=== PATIENT | male | born 1975 | race Caucasian/White ===

== ENCOUNTER 2017-10-27 02:39 | Emergency (ER) | payer BC ==
[~2017-10-27] VITALS: Ht 182.9 cm; Wt 126.1 kg
--- NOTE | 2017-10-27 03:43 | PHYS DOC ---
Past History Past Medical History: Other Past Surgical History: Other Alcohol Use: None Drug Use: Marijuana Adult General Chief Complaint Chief Complaint: LOWER EXT PAIN HPI HPI Patient is a 42 year old male who presents with complaint of neuropathic pain. The patient states that his symptoms started earlier this evening. Patient states that he has had long-standing history of neuropathy and follows with a pain management doctor [facility]. Patient states that he gets exacerbations when there are weather changes. The patient took his home medications but states that this did not help. The patient states that when he has had to have previous treatment, he has received IV Ketamine and Dilaudid which has helped to control his symptoms and allow his home medications to work better. Patient denies any fever or other unusual symptoms. Patient states that he takes Lyrica and Cymbalta at home for daily treatment. Patient states the pain is primarily in his lower extremities and describes the pain as sharp and burning. Review of Systems Review of Systems Constitutional: Denies fever or chills [] Eyes: Denies change in visual acuity, redness, or eye pain [] HENT: Denies nasal congestion or sore throat [] Respiratory: Denies cough or shortness of breath [] Cardiovascular: Denies chest pain or edema[] GI: Denies abdominal pain, nausea, vomiting, bloody stools or diarrhea [] : Denies dysuria or hematuria [] Musculoskeletal: Denies back pain or joint pain [] Integument: Denies rash or skin lesions [] Neurologic: Neuropathy, denies focal weakness or sensory changes [] Endocrine: Denies polyuria or polydipsia [] All other systems were reviewed and found to be within normal limits, except as documented in this note. Allergies Allergies Allergies Coded Allergies Type Severity Reaction Last Updated Verified morphine Allergy Intermediate 10/27/17 Yes tramadol Allergy Intermediate 10/27/17 Yes Physical Exam Physical Exam Constitutional: Alert, afebrile, appears in [id number] discomfort. [] HENT: Normocephalic, atraumatic, bilateral external ears normal, oropharynx moist, no oral exudates, nose normal. [] Eyes: PERRLA, EOMI, conjunctiva normal, no discharge. [] Neck: Normal range of motion, no tenderness, supple, no stridor. [] Cardiovascular:Heart rate regular rhythm, no murmur [] Lungs & Thorax: Bilateral breath sounds clear to auscultation [] Abdomen: Bowel sounds normal, soft, no tenderness, no masses, no pulsatile masses. [] Skin: Warm, dry, no erythema, no rash. [] Back: No tenderness, no CVA tenderness. [] Extremities: No tenderness, no cyanosis, no clubbing, ROM intact, no edema. [] Neurologic: Alert and oriented X 3, normal motor function, decreased sensation to light touch in the bilateral lower extremities in a stocking pattern. [] Current Patient Data Vital Signs Vital Signs Date Time Temp Pulse Resp B/P (MAP) Pulse Ox O2 Delivery O2 Flow Rate FiO2 10/27/17 02:43 98.7 109 20 96 Room Air Lab Results Not performed EKG EKG Not performed[] Radiology/Procedures Radiology/Procedures Not performed[] Course & Med Decision Making Course & Med Decision Making Pertinent Labs and Imaging studies reviewed. (See chart for details) The patient was given any analgesic dose of 60 mg of IV ketamine and 0.5 mg of IV Dilaudid in the emergency department. The patient states that this greatly helped his pain and he feels at his baseline currently. The patient states that he would like to go home at this time and he states that he will continue on his home medications for treatment of his chronic neuropathy. Advised patient to follow up with primary doctor in the next week as needed and return to emergency department for any worsening symptoms. Patient was understanding and agreement with treatment plan.[] Dragon Disclaimer Dragon Disclaimer This electronic medical record was generated, in whole or in part, using a voice recognition dictation system. Departure Departure: Impression: Primary Impression: Neuropathic pain of both legs Disposition: 01 HOME, SELF-CARE Condition: IMPROVED Referrals: NON,STAFF (PCP) Patient Instructions: Pain, Neuropathic Additional Instructions: Return to the emergency department for any worsening symptoms. BENNIE ELISE MD Oct 27, 2017 03:43
[2017-10-27] MEDS ORDERED: HYDROmorphone PF 1 MG/ML DISP.SYRIN IM ONE (03:45)
[2017-10-27] MEDS ORDERED: KETAMINE HCL 500 MG/10 ML VIAL. IV ONE (03:45)
[2017-10-27] MEDS ORDERED: HYDROmorphone PF 1 MG/ML DISP.SYRIN IV ONE (04:00)
[2017-10-27 04:20] VITALS: BP 149/90
== END 2017-10-27 04:29 | disposition home or self-care (01) ==
LOC: ER 02:39
DX: G57.93 Unspecified mononeuropathy of bilateral lower limbs (principal); Z88.5 Allergy status to narcotic agent; Z88.6 Allergy status to analgesic agent
CPT/HCPCS: 96374; 96375; 99284; J1170; J3490

== ENCOUNTER 2017-10-30 23:59 | Emergency (ER) | payer BC ==
[2017-10-31] MEDS ORDERED: ONDANSETRON PF 4 MG/2 ML VIAL. IV ONE (01:00)
[2017-10-31] MEDS ORDERED: KETAMINE HCL 500 MG/10 ML VIAL. IV ONE ×2 (01:00→02:00)
[2017-10-31] MEDS ORDERED: HYDROmorphone PF 1 MG/ML DISP.SYRIN IV ONE ×3 (01:00→02:00)
[2017-10-31 01:01] LABS: BASO # 0.1 x10^3/uL (0.0-0.2); BASO % 1 % (0-3); EOS % 14 % (0-3); HEMATOCRIT 36.8 % (39.0-53.0); HEMOGLOBIN 12.7 g/dL (13.0-17.5); LYMPH # 1.9 x10^3/uL (1.0-4.8); LYMPH % 25 % (24-48); MEAN CORPUSCULAR HEMOGLOBIN 31 pg (25-35); MEAN CORPUSCULAR HGB CONC 35 g/dL (31-37); MEAN CORPUSCULAR VOLUME 90 fL (79-100); MONO # 0.4 x10^3/uL (0.0-1.1); MONO % 6 % (0-9); NEUT % 54 % (31-73); PLATELET COUNT 162 x10^3/uL (140-400); RED BLOOD COUNT 4.08 x10^6/uL (4.30-5.70); RED CELL DISTRIBUTION WIDTH 13.7 % (11.5-14.5); WHITE BLOOD COUNT 7.4 x10^3/uL (4.0-11.0)
[2017-10-31 01:12] LABS: ALBUMIN/GLOBULIN RATIO 0.9 (1.0-1.7); CALCIUM 8.1 mg/dL (8.5-10.1); CREATININE 1.1 mg/dL (0.7-1.3); GFR 73.1; POTASSIUM 3.7 mmol/L (3.5-5.1); TOTAL BILIRUBIN 0.3 mg/dL (0.2-1.0); TOTAL PROTEIN 6.4 g/dL (6.4-8.2)
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
[2017-10-31 02:14] VITALS: BP 140/74
[2017-10-31] MEDS ORDERED: LORazepam 2 MG/ML VIAL IV ONE (02:30)
[2017-10-31] MEDS ORDERED: IV NORMAL SALINE 1,000ML 1,000 ML IV ONE (02:30)
[2017-10-31] MEDS ORDERED: FENT1PAT15 TD (02:39)
[2017-10-31] MEDS ORDERED: METF10003 PO (02:39)
[2017-10-31] MEDS ORDERED: OXYC5CAP PO (02:39)
[2017-10-31] MEDS ORDERED: ACET500T68 PO (02:39)
[2017-10-31] MEDS ORDERED: HYDR4TAB45 PO (02:39)
[2017-10-31] MEDS ORDERED: CYCL-331 PO (02:39)
[2017-10-31] MEDS ORDERED: MULT-697 PO (02:39)
[2017-10-31] MEDS ORDERED: VARE1TAB21 PO (02:39)
[2017-10-31] MEDS ORDERED: PREG200C PO (02:39)
[2017-10-31] MEDS ORDERED: ROPI0.5T PO (02:39)
[2017-10-31] MEDS ORDERED: GABA600T2 PO (02:39)
[2017-10-31] MEDS ORDERED: LIDO30CR TP (02:39)
[2017-10-31] MEDS ORDERED: SENN-79 PO (02:39)
[2017-10-31] MEDS ORDERED: ALPR0.5T6 PO (02:39)
[2017-10-31] MEDS ORDERED: DULO60CA6 PO (02:39)
== END 2017-10-31 03:43 | disposition home or self-care (01) ==
LOC: ER 23:59
DX: G57.93 Unspecified mononeuropathy of bilateral lower limbs (principal); Z88.5 Allergy status to narcotic agent; Z88.6 Allergy status to analgesic agent
CPT/HCPCS: 36415; 80053; 85025; 96374; 96375; 96376; 99284; J1170; J2060; J2405; J3490; J7030

== ENCOUNTER 2018-02-08 03:45 | Observation (INO) | payer BC, OTHER ==
[~2018-02-08] VITALS: Ht 182.9 cm; Wt 136.2 kg
[~2018-02-08 03:45] MED LIST: ACET500T68 PO; ALPR0.5T6 PO; CYCL-331 PO; DULO60CA6 PO; FENT1PAT15 TD; GABA600T2 PO; HYDR4TAB45 PO; LIDO30CR TP; METF10007 PO; MULT-697 PO; OXYC5CAP PO; PREG200C PO; ROPI0.5T PO; SENN-80 PO; VARE1TAB21 PO
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
[2018-02-08] MEDS: IV RINGERS SOLUTION,LACTATED 1,000 ML IV SCH ×6 (04:12→22:45)
[2018-02-08] MEDS ORDERED: KETOROLAC 30 MG/ML VIAL. IV ONE (04:30)
[2018-02-08] MEDS ORDERED: ORPHENADRINE CITRATE 60 MG/2 ML VIAL. IV ONE (04:30)
[2018-02-08 04:35] LABS: BASO # 0.1 x10^3/uL (0.0-0.2); BASO % 1 % (0-3); EOS # 0.2 x10^3/uL (0.0-0.7); EOS % 2 % (0-3); HEMATOCRIT 45.9 % (39.0-53.0); HEMOGLOBIN 15.6 g/dL (13.0-17.5); LYMPH # 3.3 x10^3/uL (1.0-4.8); LYMPH % 37 % (24-48); MEAN CORPUSCULAR HEMOGLOBIN 31 pg (25-35); MEAN CORPUSCULAR HGB CONC 34 g/dL (31-37); MEAN CORPUSCULAR VOLUME 90 fL (79-100); MONO # 0.7 x10^3/uL (0.0-1.1); MONO % 8 % (0-9); NEUT # 4.6 x10^3uL (1.8-7.7); NEUT % 53 % (31-73); PLATELET COUNT 259 x10^3/uL (140-400); RED BLOOD COUNT 5.08 x10^6/uL (4.30-5.70); RED CELL DISTRIBUTION WIDTH 15.5 % (11.5-14.5); WHITE BLOOD COUNT 8.8 x10^3/uL (4.0-11.0)
[2018-02-08 04:50] LABS: ALBUMIN 3.9 g/dL (3.4-5.0); CALCIUM 8.2 mg/dL (8.5-10.1); CREATININE 1.7 mg/dL (0.7-1.3); DIRECT BILIRUBIN 0.1 mg/dL (0.0-0.2); GFR 44.2; MAGNESIUM 1.6 mg/dL (1.8-2.4); POTASSIUM 4.1 mmol/L (3.5-5.1); TOTAL BILIRUBIN 0.4 mg/dL (0.2-1.0); TOTAL PROTEIN 7.5 g/dL (6.4-8.2)
[2018-02-08 05:03] LABS: BILIRUBIN,URINE NEG (NEG); CLARITY,URINE CLEAR; COLOR,URINE YELLOW; GLUCOSE,URINE NEG (NEG)
[2018-02-08 05:04] LABS: BACTERIA,URINE 0 /HPF (0-FEW); NITRITE,URINE NEG (NEG); RBC,URINE RARE /HPF (0-2); SQUAMOUS EPITHELIAL CELL,UR OCC /LPF; UROBILINOGEN,URINE 0.2 mg/dL (0.2 mg/dL); WBC,URINE RARE /HPF (0-4)
[2018-02-08 05:05] LABS: AMPHETAMINE/METHAMPHETAMINE NEG (NEG); BARBITURATES NEG (NEG); BENZODIAZEPINES NEG (NEG); CANNABINOIDS POS (NEG); COCAINE NEG (NEG); METHADONE NEG (NEG); OPIATES NEG (NEG); PHENCYCLIDINE NEG (NEG)
[2018-02-08] MEDS ORDERED: KETAMINE HCL 500 MG/10 ML VIAL. IV ONE (05:30)
[2018-02-08] MEDS ORDERED: VALPROATE SODIUM 500 MG in IV NORMAL SALINE 50ML 50 ML IV ONE (05:30)
[2018-02-08] MEDS ORDERED: methylPREDNISolone SOD SUCC PF 125 MG/2 ML VIAL. IV ONE (05:30)
[2018-02-08] MEDS ORDERED: VALPROATE SODIUM 500 MG/5 ML VIAL IV ONE (05:36)
[2018-02-08] MEDS ORDERED: IV NORMAL SALINE 50ML 50 ML ONE (05:36)
[2018-02-08] MEDS ORDERED: MAGNESIUM SULFATE 2GM 50 ML IV ONE (06:00)
--- NOTE | 2018-02-08 06:03 | EKG ---
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
[2018-02-08] MEDS ORDERED: ONDANSETRON PF 4 MG/2 ML VIAL. IV PRN (06:30)
[2018-02-08 07:08] LABS: BGAS PH 7.39 (7.35-7.46)
[2018-02-08] MEDS ORDERED: LORazepam 2 MG/ML VIAL IV ONE (07:30)
[2018-02-08 08:42] VITALS: BP 154/90
[2018-02-08] MEDS: HYDROmorphone PF 1 MG/ML DISP.SYRIN IV PRN ×7 (08:42→22:45)
[2018-02-08 10:48] VITALS: BP 155/98
[2018-02-08] MEDS ORDERED: IBUPROFEN 600 MG TABLET. PO ONE (13:30)
[2018-02-08 14:49] VITALS: BP 156/90
[2018-02-08] MEDS ORDERED: SENNOSIDES 8.6 MG TABLET PO PRN (15:15)
[2018-02-08] MEDS ORDERED: IBUPROFEN 600 MG TABLET. PO PRN (15:45)
--- NOTE | 2018-02-08 16:34 | HP ---
ADMIT DATE: 02/08/2018 HISTORY OF PRESENT ILLNESS: The patient is a 42-year-old male patient, who came to the Emergency Room, complaining of severe pain. He apparently has a history of chronic painful peripheral neuropathy. He claimed that he has severe pain in a stocking distribution in both lower extremities, more so on the left than right. He claims that he was investigated in multiple places including at where he was fitted also with a nerve stimulator that did not work. Reportedly, he has been an extensively investigated. No cause was found for his painful peripheral neuropathy. He did have a left patellar fracture that was treated with open reduction and internal fixation. When he was young, he has also a fall and back injury, although there is no evidence of any radiculopathy or compression fracture or trauma to his lower lumbar spine. He denied any problem with his bowel or bladder. He was extensively investigated in the Emergency Room. His lab work was mostly unremarkable. His chemistry was normal except for slightly elevated creatinine. His inflammatory markers were normal. His C-reactive protein was 3 and sedimentation rate was 14 mm per hour. He was admitted and was started on hydromorphone 0.5 mg every 2 hours and together with multivitamin and gabapentin as well as senna together with Tylenol and ibuprofen. PAST MEDICAL HISTORY: Significant for painful peripheral neuropathy of 6 years' duration. He has also gastroesophageal reflux disease. PAST SURGICAL HISTORY: Significant for tonsillectomy, left patellar fracture, nerve stimulator placement and removal, history of esophagogastroduodenoscopy and colonoscopy. ALLERGIES: HE IS ALLERGIC TO MORPHINE AND TRAMADOL. MEDICATIONS: He is currently on gabapentin 600 mg 4 times a day. Use Tylenol 650 mg every 4 hours, ibuprofen 600 mg 3 times a day and he is also on sertraline 100 mg once a day. FAMILY HISTORY: He has one sister older at age of 45 and healthy. His father is alive at the age of 72, who has coronary artery disease, status post PCI and stent deployment. His mother is alive at age of 71. She is a breast cancer survivor and had a CVA. SOCIAL HISTORY: He is to his current , but they do not have children and common, but he has children from previous marriage. He smokes less than a pack a day, does not drink alcohol, smokes marijuana. He apparently worked for [employer] for [employer] for past 20 years and recently was laid off. REVIEW OF SYSTEMS: The patient denied any blurring of vision, cataract, glaucoma or macular degeneration. Denied any earache, tinnitus or sensorineural deafness. Denied any nosebleeds, stuffy nose or postnasal drip. Denied any sore throat, sore tongue, toothache, hoarseness of voice or difficulty swallowing. Denied any nausea, vomiting, diarrhea or constipation. Denied any hematemesis, melena or hematochezia. Denied any dysuria, frequency or hematuria. Denied any chest pain, shortness of breath, orthopnea, paroxysmal nocturnal dyspnea. Denied any cough, phlegm or hemoptysis. Denied any chills, rigors, or fever. Denied any dizziness, lightheadedness, or vertigo. PHYSICAL EXAMINATION: GENERAL: On examining him today, he looked well and was clearly in no apparent respiratory distress. VITAL SIGNS: His heart rate was 137, blood pressure was 131/107, temperature was 98.2, respiratory rate was 24, and oxygen saturation was 95% on room air. HEENT: Examination of the head, eyes, ears, nose and throat showed normocephalic, atraumatic. NECK: Supple. HEART: Showed normal first and second heart sounds with no gallop, rub or murmur. CHEST: Clear to auscultation. No crepitation or rhonchi. ABDOMEN: Distended, soft, nontender. No guarding or rigidity. No organomegaly. Hernial orifice intact. Bowel sounds normal. NEUROLOGIC: He was awake, alert, and responding. All cranial nerves intact. He moves extremities without difficulty. LABORATORY DATA: On arrival showed a white cell count of 8800, hemoglobin 15.6, hematocrit 45, MCV 90 and platelet count of 259,000 with normal manual differential. His sedimentation rate was 40 mm per hour. Serum sodium was 137, potassium 4.1, chloride 98, bicarbonate 23, anion gap of 16, BUN 28, creatinine 1.7, estimated GFR was 44 mL per minute, his glucose 148, calcium was 8.2, magnesium was 1.6. Total bilirubin, AST, ALT, alkaline phosphatase were normal. His CK was 231. His C-reactive protein was only 3 mg/dL. Total protein was 7.5, albumin 3. His arterial blood gases showed a pH of 7.39, pCO2 of 37, pO2 of 91, bicarbonate 23, and oxygen saturation was 97% on FiO2 of 32%. His urinalysis showed the urine was yellow, clear with a pH of 5.5 and specific gravity of 1.030. There is small amount of protein. The urine was negative for glucose, trace of ketones, small amount of blood, negative for nitrite and leukocyte esterase. There are no rbc's, no wbc's, and no bacteria. His toxic screen was positive for cannabinoids and alcohol. IMPRESSION: In summary, this is a 42-year-old male patient, who claims that he is having idiopathic painful peripheral neuropathy, apparently has been extensively investigated including at and he was offered the nerve stimulator that succeeded on trial time, but when it was actually in, he did not benefit from it and had to be taken out. PLAN: My plan is to put him back on all his medication and we will ask for the record from , so that we do not reduplicate all the and decide on further management accordingly. SARAH HAMILTON MD DR: KAYLAN/davie JOB#: [id number] / [id number]
[2018-02-08] MEDS ORDERED: GABAPENTIN 400 MG CAPSULE. PO SCH (17:45)
[2018-02-08] MEDS: GABAPENTIN 300 MG CAPSULE. PO SCH (17:53)
[2018-02-08] MEDS: ACETAMINOPHEN 325 MG TABLET PO PRN (17:53)
[2018-02-08 20:42] VITALS: BP 164/108
[2018-02-08 21:00] VITALS: BP 152/92
[2018-02-08] MEDS ORDERED: GABAPENTIN 300 MG CAPSULE. PO SCH (21:00)
[2018-02-08 22:51] VITALS: BP 160/105
[2018-02-09] MEDS: HYDROmorphone PF 1 MG/ML DISP.SYRIN IV PRN ×6 (01:31→12:58)
[2018-02-09] MEDS: ACETAMINOPHEN 325 MG TABLET PO PRN ×2 (05:48→08:33)
[2018-02-09 06:08] VITALS: BP 161/99
[2018-02-09 07:28] LABS: BASO % 0 % (0-3); EOS % 0 % (0-3); HEMATOCRIT 39.6 % (39.0-53.0); HEMOGLOBIN 13.5 g/dL (13.0-17.5); LYMPH # 1.3 x10^3/uL (1.0-4.8); LYMPH % 19 % (24-48); MEAN CORPUSCULAR HEMOGLOBIN 31 pg (25-35); MEAN CORPUSCULAR HGB CONC 34 g/dL (31-37); MEAN CORPUSCULAR VOLUME 90 fL (79-100); MONO # 0.7 x10^3/uL (0.0-1.1); MONO % 10 % (0-9); NEUT % 71 % (31-73); PLATELET COUNT 203 x10^3/uL (140-400); RED CELL DISTRIBUTION WIDTH 15.3 % (11.5-14.5); WHITE BLOOD COUNT 7.1 x10^3/uL (4.0-11.0)
[2018-02-09 07:30] LABS: CREATININE 0.9 mg/dL (0.7-1.3); GFR 92.1; POTASSIUM 3.9 mmol/L (3.5-5.1)
[2018-02-09] MEDS: IV RINGERS SOLUTION,LACTATED 1,000 ML IV SCH (07:30)
[2018-02-09] MEDS: GABAPENTIN 300 MG CAPSULE. PO SCH ×2 (08:30→12:51)
[2018-02-09] MEDS ORDERED: MULTIVITAMIN with MINERAL TABLET. PO SCH (09:00)
[2018-02-09 10:47] VITALS: BP 160/90
--- NOTE | 2018-02-09 17:57 | DS ---
DATE OF DISCHARGE: 02/09/2018 HOSPITAL COURSE: The patient is a 42-year-old male patient who came with complaining of severe pain exacerbation of his painful peripheral neuropathy in stocking distribution of both lower extremities, this started about 6 years ago. He apparently has been seen in multiple centers and, in fact a nerve stimulator at [facility] has tried. He was seen at pain management clinic and tried multiple narcotics and apparently he was on duloxetine, unfortunately on Lyrica, but the insurance stopped paying for it and he tried gabapentin and apparently doing well with that. When he came to our facility, he also was extremely dehydrated. His BUN and creatinine was high at 28 and 1.7 and he was rehydrated. We started him on gabapentin and ibuprofen together with hydromorphone and antiemetic and he did very well. He has had no further episodes of nausea and vomiting. His pain is much better controlled. When I saw him today, he was resting slightly propped up in bed, in no apparent respiratory distress, awake, alert, responding appropriately. Cranial nerves are intact. He moves extremities without difficulty. His pain is much better controlled. His lab work has improved. His BUN and creatinine are down to 25 and 0.9. A decision was made to discharge him home to follow with his primary care physician. PHYSICAL EXAMINATION: GENERAL: When I saw him this afternoon, he looked well and was clearly in no apparent respiratory distress. No pallor, jaundice, cyanosis, or thyromegaly. No jugular venous distension. No limb edema. VITAL SIGNS: His heart rate was 85, blood pressure was 161/99, temperature was 97.7, respiratory rate was 18, and oxygen saturation was 96%. HEENT: Examination of the head, eyes, ears, nose and throat showed normocephalic, atraumatic. NECK: Supple. HEART: Showed normal first and second heart sounds. No gallop, rub or murmur. CHEST: Clear to auscultation. No crepitation or rhonchi. ABDOMEN: Distended, soft, nontender. No guarding or rigidity. No organomegaly. Hernial orifices are intact and bowel sounds normal. NEUROLOGICAL: He was awake, alert, responding appropriately. All his cranial nerves are intact. EXTREMITIES: He moves extremities without difficulty. He ambulates without assistance or assistive devices. His intake was 4477. No record of any output. LABORATORY DATA: His lab work this morning showed serum sodium was 135, potassium 3.9, chloride 98, bicarbonate 25, anion gap of 12, BUN 25, creatinine 0.9, estimated GFR was 92 mL per minute. His glucose 131, calcium was 8. His white cell count was 7100, hemoglobin 13.5, hematocrit 39, MCV 90, and platelet count of 103,000. His sed rate was 14 mmHg. C-reactive protein was only 3 mg/dL. ASSESSMENT: 1. Painful [id number] peripheral neuropathy, responding well to treatment. 2. Gastroesophageal reflux disease. 3. Morbid obesity. 4. Restless leg syndrome. 5. Hypertension. 6. I will discuss the finding of high blood pressure, although he was in pain and that he might consider talking to his primary care physician for antihypertensive medication. SARAH HAMILTON MD DR: KAYLAN/davie JOB#: [id number] / [id number]
== END 2018-02-09 15:15 | disposition home or self-care (01) ==
LOC: ER 03:45 → INTOOBSV 06:00 → 1 SOUTH 06:00
PROVIDERS: ADMIT Internal Medicine; ATTEND Internal Medicine
DX: G62.9 Polyneuropathy, unspecified (principal); K21.9 Gastro-esophageal reflux disease without esophagitis; I10 Essential (primary) hypertension; E66.01 Morbid (severe) obesity due to excess calories; G25.81 Restless legs syndrome; F17.210 Nicotine dependence, cigarettes, uncomplicated; E86.0 Dehydration; Z79.899 Other long term (current) drug therapy; Z82.49 Family history of ischemic heart disease and other diseases of the circulatory system; Z82.3 Family history of stroke; Z88.8 Allergy status to other drugs, medicaments and biological substances
CPT/HCPCS: 36415; 36600; 80048; 80076; 80307; 81001; 82550; 82607; 82803; 83036; 83735; 84443; 84484; 85025; 85651; 86140; 93005; 96361; 96365; 96366; 96375; 96376; 97161; 97166; 99284; G0378; G0480; J1170; J1885; J2060; J2360; J2930; J3475; J3490; J7120; G0379

== ENCOUNTER 2018-04-06 10:41 | Emergency (ER) | payer OTHER ==
[~2018-04-06] VITALS: Ht 185.4 cm; Wt 144.2 kg
[2018-04-06 11:20] VITALS: BP 157/100
--- NOTE | 2018-04-06 11:43 | RAD ---
Right ankle, 3 views, 04/06/2018: HISTORY: Fall, pain There is an oblique fracture of the distal fibula along the superior margin of the lateral malleolus. There is slight posterior and lateral displacement of the distal fracture fragment. There is widening of distance between the talus and medial malleolus compatible with medial ligamentous injury. No additional fracture is evident. Moderate diffuse soft tissue swelling is present. Right foot, 3 views, 04/06/2018: There are mild scattered degenerative changes. No additional fracture is identified. IMPRESSION: 1. Acute distal fibular fracture. 2. Widening of the ankle mortise medially compatible with ligamentous injury. Electronically signed by: Dwayne Hannah MD (04/06/2018 11:38 AM) [facility]
[2018-04-06] MEDS ORDERED: HYDR-3165 PO (12:00)
--- NOTE | 2018-04-06 12:00 | PHYS DOC ---
Past History Past Medical History: Other Past Surgical History: Tonsillectomy, Other Smoking: Non-smoker Additional Smoking Information: 1 PPD Alcohol Use: None Drug Use: Marijuana Adult General Chief Complaint Chief Complaint: ANKLE PROBLEM HPI HPI Patient is a 42 year old male who presents with complaining of left ankle injury. Patient states he had an accidental fall from a standing position inside of his home at 6 AM today after his foot giving up on him because of chronic neuropathy and landed on his left ankle with twisting and injury of ankle. Patient denies other injuries and loss of consciousness. Patient complaining of severe pain in ankle and unable to bearing weight. Patient rated his pain 10 over 10. Patient denies new focal neuro deficit, fever and chills, nausea and vomiting, headache. Review of Systems Review of Systems Constitutional: Denies fever or chills [] Eyes: Denies change in visual acuity, redness, or eye pain [] HENT: Denies nasal congestion or sore throat [] Respiratory: Denies cough or shortness of breath [] Cardiovascular: No additional information not addressed in HPI [] GI: Denies abdominal pain, nausea, vomiting, bloody stools or diarrhea [] : Denies dysuria or hematuria [] Musculoskeletal: Denies back pain, reports joint pain [] Integument: Denies rash or skin lesions [] Neurologic: Denies headache, focal weakness or sensory changes [] Endocrine: Denies polyuria or polydipsia [] All other systems were reviewed and found to be within normal limits, except as documented in this note. Current Medications Current Medications Current Medications Medications (Trade) Dose Ordered Sig/Trice Start Time Stop Time Status Last Admin Dose Admin Acetaminophen/ Hydrocodone Bitart (Lortab 5/325) 2 tab 1X ONCE 04/06/18 11:45 04/06/18 11:46 DC Fentanyl Citrate (Fentanyl 2ml Vial) 100 mcg STK-MED ONCE 04/06/18 11:00 04/06/18 11:02 DC Allergies Allergies Allergies Coded Allergies Type Severity Reaction Last Updated Verified morphine Allergy Intermediate 10/27/17 Yes tramadol Allergy Intermediate 10/27/17 Yes Physical Exam Physical Exam Constitutional: Well developed, well nourished, moderate distress, non-toxic appearance, morbidly obese. [] HENT: Normocephalic, atraumatic. Neck: Normal range of motion, no tenderness, supple, no stridor. [] Cardiovascular: Tachycardia, no murmur [] Lungs & Thorax: Bilateral breath sounds clear to auscultation [] Skin: Diaphoretic Back: No tenderness, no CVA tenderness. [] Extremities: Left ankle with moderate edema and erythema in lateral malleolus with ecchymoses and tenderness and limited range of motion, chronic paresthesia , good cap refill Neurologic: Alert and oriented X 3, normal motor function, normal sensory function, no focal deficits noted. [] Psychologic: Affect anxious, judgement normal, mood normal. [] Current Patient Data Vital Signs Vital Signs Date Time Temp Pulse Resp B/P (MAP) Pulse Ox O2 Delivery O2 Flow Rate FiO2 04/06/18 11:20 98.1 118 20 97 Room Air EKG EKG [] Radiology/Procedures Radiology/[place] [address] IMAGING REPORT Signed PATIENT: SHEEBA MARCUS ACCOUNT: [id number] : 1975 LOCATION: ER AGE: 42 SEX: M EXAM STATUS: REG ER ORD. PHYSICIAN: JENNIFER RUSSO MD REASON: fall PROCEDURE: ANKLE LEFT 3V Right ankle, 3 views, 04/06/2018: HISTORY: Fall, pain There is an oblique fracture of the distal fibula along the superior margin of the lateral malleolus. There is slight posterior and lateral displacement of the distal fracture fragment. There is widening of distance between the talus and medial malleolus compatible with medial ligamentous injury. No additional fracture is evident. Moderate diffuse soft tissue swelling is present. Right foot, 3 views, 04/06/2018: There are mild scattered degenerative changes. No additional fracture is identified. IMPRESSION: 1. Acute distal fibular fracture. 2. Widening of the ankle mortise medially compatible with ligamentous injury. Electronically signed by: Dwayne Hannah MD (04/06/2018 11:38 AM) [facility] DICTATED AND SIGNED BY: DWAYNE HANNAH MD DATE: 04/06/18 2481 CC: JENNIFER RUSSO MD; INGRID MENA ~ Course & Med Decision Making Course & Med Decision Making Pertinent Imaging studies reviewed. (See chart for details) Evaluation of patient in ER showed 42-year-old male patient with a fall and injury to left ankle and fracture of distal fibula. With 100 g of fentanyl IM and 10 mg of Kincaid. Posterior leg splint was placed by REGIONAL SERVICE MANAGER with good cap refill. Crutches pulses provided and patient instructed to follow-up with on- call orthopedic physician. Ellie Disclaimer Dragon Disclaimer This electronic medical record was generated, in whole or in part, using a voice recognition dictation system. Departure Departure: Impression: Primary Impression: Fracture of distal end of left fibula Additional Impressions: Fall at home Morbid obesity with BMI of 40.0-44.9, adult Injury of ligament Neuropathy Disposition: HOME, SELF-CARE (at 1156) Condition: IMPROVED Referrals: INGRID MENA (PCP) Patient Instructions: Fibular Fracture, Ankle, Adult, Treated with or without Immobilization Additional Instructions: Follow-up with applications systems engineer orthopedic physician, call [phone] to make an appointment Use provided crutches Follow-up with your primary care physician in 3-5 days Return to ER if not getting better Scripts Hydrocodone Bit/Acetaminophen (NORCO 5-325 TABLET) 1 Each Tablet 1 TAB PO PRN Q6HRS PRN for PAIN, #14 TAB 0 Refills Prov: JENNIFER RUSSO MD 04/06/18 Problem Qualifiers JENNIFER RUSSO MD Apr 06, 2018 12:00
[2018-04-06] MEDS: HYDROcodone/APAP 5/325MG 1 TAB TABLET PO ONE (12:24)
== END 2018-04-06 12:26 | disposition home or self-care (01) ==
LOC: ER 10:41
DX: S82.832A Other fracture of upper and lower end of left fibula, initial encounter for closed fracture (principal); E66.01 Morbid (severe) obesity due to excess calories; G62.9 Polyneuropathy, unspecified; F17.200 Nicotine dependence, unspecified, uncomplicated; Z68.41 Body mass index [BMI] 40.0-44.9, adult; Z88.5 Allergy status to narcotic agent; Z88.6 Allergy status to analgesic agent; W18.30XA Fall on same level, unspecified, initial encounter; Y93.89 Activity, other specified; Y92.098 Other place in other non-institutional residence as the place of occurrence of the external cause; Y99.8 Other external cause status
CPT/HCPCS: 29515; 73610; 73630; 96372; 99283; J3010

== ENCOUNTER 2018-09-05 20:23 | Emergency (ER) | payer OTHER ==
[~2018-09-05] VITALS: Ht 185.4 cm; Wt 140.6 kg
[~2018-09-05 20:23] MED LIST changes: -GABA600T2 PO; +GABA600T7 PO; +HYDR-3165 PO
[2018-09-05] MEDS ORDERED: HALOPERIDOL LACT 5 MG/ML VIAL. IM ONE (20:45)
[2018-09-05] MEDS ORDERED: IV NORMAL SALINE 1,000ML 1,000 ML IV ONE ×2 (20:45→21:30)
[2018-09-05 20:56] LABS: BASO # 0.1 x10^3/uL (0.0-0.2); BASO % 1 % (0-3); EOS # 0.2 x10^3/uL (0.0-0.7); EOS % 2 % (0-3); HEMATOCRIT 47.4 % (39.0-53.0); HEMOGLOBIN 16.4 g/dL (13.0-17.5); LYMPH # 3.3 x10^3/uL (1.0-4.8); LYMPH % 38 % (24-48); MEAN CORPUSCULAR HEMOGLOBIN 35 pg (25-35); MEAN CORPUSCULAR HGB CONC 35 g/dL (31-37); MEAN CORPUSCULAR VOLUME 102 fL (79-100); MONO # 1.5 x10^3/uL (0.0-1.1); MONO % 17 % (0-9); NEUT # 3.6 x10^3uL (1.8-7.7); NEUT % 41 % (31-73); PLATELET COUNT 286 x10^3/uL (140-400); RED BLOOD COUNT 4.65 x10^6/uL (4.30-5.70); RED CELL DISTRIBUTION WIDTH 13.9 % (11.5-14.5); WHITE BLOOD COUNT 8.7 x10^3/uL (4.0-11.0)
[2018-09-05 21:14] LABS: ALBUMIN 3.9 g/dL (3.4-5.0); ALBUMIN/GLOBULIN RATIO 0.8 (1.0-1.7); CALCIUM 8.8 mg/dL (8.5-10.1); CREATININE 1.5 mg/dL (0.7-1.3); GFR 50.8; MAGNESIUM 1.9 mg/dL (1.8-2.4); POTASSIUM 4.1 mmol/L (3.5-5.1); TOTAL BILIRUBIN 0.9 mg/dL (0.2-1.0); TOTAL PROTEIN 8.5 g/dL (6.4-8.2)
--- NOTE | 2018-09-05 21:40 | ED.ADGEN ---
Past History Past Medical History: Other Past Surgical History: Cholecystectomy, Tonsillectomy, Other Smoking: Non-smoker Alcohol Use: None Drug Use: Marijuana Adult General Chief Complaint Chief Complaint Bilateral lower extremity pain, cramping HPI HPI Patient is a 43-year-old male with history of peripheral neuropathy past 6 years ago presents with uncontrolled pain hopeful lower extremities. Patient states feels as though his legs are on fire. Pain is rated 10 out of 10. Patient is Dr. Ahmadi is now patient has been prescribed gabapentin 600 mg 3 times daily. He is taking this medication without relief. Patient is not currently on denies recent use of narcotic pain medication. Denies chest pain, shortness of breath. Patient diaphoretic and moaning in pain. No fever chills, nausea vomiting. Denies history of diabetes. Although, patient does report 100 pound weight loss in the past year. Patient states he is currently on disability for his neuropathy and has not been able to walk or exercise for the past one month but has continued to lose 15-20 pounds. No other acute symptoms or complaints. Additional history obtained from the patient's spouse.[] Review of Systems Review of Systems Review symptoms as per history of present illness. All other review symptoms are negative. All other systems were reviewed and found to be within normal limits, except as documented in this note. Current Medications Current Medications Current Medications Medications (Trade) Dose Ordered Sig/Trice Start Time Stop Time Status Last Admin Dose Admin Haloperidol Lactate (Haldol) 5 mg 1X ONCE 09/05/18 20:45 09/05/18 20:47 DC 09/05/18 20:43 5 MG Ketorolac Tromethamine (Toradol 15mg Vial) 15 mg 1X ONCE 09/05/18 22:00 09/05/18 22:01 Lorazepam (Ativan Inj) 1 mg 1X ONCE 09/05/18 22:00 09/05/18 22:01 Sodium Chloride 1,000 ml @ 1,000 mls/hr 1X ONCE 09/05/18 21:30 09/05/18 22:29 Allergies Allergies Allergies Coded Allergies Type Severity Reaction Last Updated Verified morphine Allergy Intermediate 10/27/17 Yes tramadol Allergy Intermediate 10/27/17 Yes Physical Exam Physical Exam Constitutional: Well developed, diaphoretic, moderate distress secondary to pain. [] HENT: Normocephalic, atraumatic, bilateral external ears normal, oropharynx moist, nose normal. [] Eyes: PERRLA, EOMI, conjunctiva normal, no discharge. [] Neck: Normal range of motion, no tenderness, supple, no stridor. [] Cardiovascular: Tachycardic[] Lungs & Thorax: Bilateral breath sounds clear to auscultation [] Abdomen: Bowel sounds normal, soft, no tenderness, no masses, no pulsatile masses. [] Extremities: No tenderness, uncontrolled shaking/tremors of B lower extremities, pain, tenderness.. [] Neurologic: Alert and oriented X 3, normal motor function, normal sensory function, no focal deficits noted. [] Psychologic: Affect normal, judgement normal, mood normal. [] Current Patient Data Vital Signs Vital Signs Date Time Temp Pulse Resp B/P (MAP) Pulse Ox O2 Delivery O2 Flow Rate FiO2 09/05/18 20:23 98.0 110 18 100 Room Air Lab Results Laboratory Tests Test 09/05/18 20:40 White Blood Count 8.7 x10^3/uL (4.0-11.0) Red Blood Count 4.65 x10^6/uL (4.30-5.70) Hemoglobin 16.4 g/dL (13.0-17.5) Hematocrit 47.4 % (39.0-53.0) Mean Corpuscular Volume 102 fL (79-100) H Mean Corpuscular Hemoglobin 35 pg (25-35) Mean Corpuscular Hemoglobin Concent 35 g/dL (31-37) Red Cell Distribution Width 13.9 % (11.5-14.5) Platelet Count 286 x10^3/uL (140-400) Neutrophils (%) (Auto) 41 % (31-73) Lymphocytes (%) (Auto) 38 % (24-48) Monocytes (%) (Auto) 17 % (0-9) H Eosinophils (%) (Auto) 2 % (0-3) Basophils (%) (Auto) 1 % (0-3) Neutrophils # (Auto) 3.6 x10^3uL (1.8-7.7) Lymphocytes # (Auto) 3.3 x10^3/uL (1.0-4.8) Monocytes # (Auto) 1.5 x10^3/uL (0.0-1.1) H Eosinophils # (Auto) 0.2 x10^3/uL (0.0-0.7) Basophils # (Auto) 0.1 x10^3/uL (0.0-0.2) Sodium Level 139 mmol/L (136-145) Potassium Level 4.1 mmol/L (3.5-5.1) Chloride Level 98 mmol/L (98-107) Carbon Dioxide Level 20 mmol/L (21-32) L Anion Gap 21 (6-14) H Blood Urea Nitrogen 6 mg/dL (8-26) L Creatinine 1.5 mg/dL (0.7-1.3) H Estimated GFR (Cockcroft-Gault) 50.8 BUN/Creatinine Ratio 4 (6-20) L Glucose Level 399 mg/dL (70-99) H Calcium Level 8.8 mg/dL (8.5-10.1) Magnesium Level 1.9 mg/dL (1.8-2.4) Total Bilirubin 0.9 mg/dL (0.2-1.0) Aspartate Amino Transferase (AST) 83 U/L (15-37) H Alanine Aminotransferase (ALT) 88 U/L (16-63) H Alkaline Phosphatase 214 U/L (46-116) H Creatine Kinase 130 U/L (39-308) Total Protein 8.5 g/dL (6.4-8.2) H Albumin 3.9 g/dL (3.4-5.0) Albumin/Globulin Ratio 0.8 (1.0-1.7) L EKG EKG [] Radiology/Procedures Radiology/Procedures [] Course & Med Decision Making Course & Med Decision Making Pertinent Labs and Imaging studies reviewed. (See chart for details) [Blood sugar is 400. Patient didn't denies eating or drinking anything imme diately prior to ED arrival. Suspect exacerbation of chronic neuropathy due to dehydration from recent weight loss associated with new-onset diabetes. Patient reports gradual weight loss of 100 pounds in the past year. Fluid bolus, Haldol, Toradol and Ativan given for treatment of anxiety and cramping. Dr. Matute to admit. Recommendations are to start patient on insulin drip.] Final Impression Final Impression [] Dragon Disclaimer Dragon Disclaimer This electronic medical record was generated, in whole or in part, using a voice recognition dictation system. SAQIB MALIK DO Sep 05, 2018 21:40
[2018-09-05] MEDS ORDERED: INSULIN REGULAR VIAL 150 UNIT in 0.9 % SODIUM CHLORIDE 150ML 150 ML IV PRN ×2 (21:45→22:00)
[2018-09-05] MEDS ORDERED: ONDANSETRON PF 4 MG/2 ML VIAL. IV PRN (21:45)
[2018-09-05] MEDS ORDERED: IV DEXTROSE 5 %-0.45 % NACL 1,000 ML IV PRN (21:45)
[2018-09-05] MEDS ORDERED: KETOROLAC 15 MG/ML VIAL. IV ONE (22:00)
[2018-09-05 22:50] VITALS: BP 132/76
[2018-09-05] MEDS ORDERED: ETOMIDATE 40 MG/20 ML VIAL. IV ONE (23:00)
[2018-09-05] MEDS ORDERED: VECURONIUM 10 MG VIAL. IV ONE (23:00)
[2018-09-05] MEDS ORDERED: ADENOSINE 6 MG/2 ML VIAL IV ONE (23:00)
[2018-09-05] MEDS ORDERED: MIDAZOLAM HCL PF 5 MG/5 ML VIAL. ONE (23:00)
[2018-09-05] MEDS ORDERED: [UNRECOGNIZED DRUG - OTHER] IJ ONE (23:00)
[2018-09-05] MEDS ORDERED: ROCURONIUM 50 MG/5 ML VIAL. ONE (23:00)
[2018-09-05] MEDS ORDERED: PROPOFOL 10,000 MCG/ML (20ML) VIAL IV ONE (23:00)
[2018-09-05] MEDS ORDERED: PROPOFOL 100 ML IV ONE (23:54)
[2018-09-06] MEDS ORDERED: dilTIAZem 25 MG/5 ML VIAL IVP ONE (02:15)
[2018-09-06] MEDS ORDERED: ADENOSINE 6 MG/2 ML VIAL IV ONE ×2 (02:30)
[2018-09-06] MEDS ORDERED: IV NORMAL SALINE 1,000ML 1,000 ML IV ONE (02:30)
--- NOTE | 2018-09-06 06:32 | EKG ---
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
--- NOTE | 2018-09-06 06:32 | EKG ---
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
--- NOTE | 2018-09-06 06:33 | EKG ---
[address] [address] Test Date: 2018-09-05 Test Time: 22:36:33 Pat Name: SHEEBA MARCUS Department: Room: Gender: M Peer Specialist: : 1975 Requested By: SAQIB MALIK Order Number: [id number] Reading MD: Measurements Intervals [place] Rate: 3 P: 0 TN: 0 QRS: 0 QRSD: 0 T: 0 QT: 0 QTc: 0 Interpretive Statements UNUSABLE ECG RI6.01 No previous ECG available for comparison
[2018-09-06 07:41] LABS: BGAS PH 7.28 (7.35-7.46)
--- NOTE | 2018-09-06 07:46 | RAD ---
EXAM: AP View of the chest DATE: 09/05/2018 11:26 PM INDICATION: Post intubation COMPARISON: No Prior FINDINGS: ET tube tip is seen within the right mainstem bronchus and can be retracted approximately 5 cm. The heart is not enlarged. Bilateral perihilar and lung base airspace opacities are seen likely atelectasis. Small right pleural effusion. Left costophrenic angle is not entirely included in the [id number]. No definite pneumothorax. IMPRESSION: ET tube tip is seen within the right mainstem bronchus and can be retracted approximately 5 cm. Findings ET tube positioning discussed with ER nurse at 7:42 AM 09/06/2018 who noted the patient had been transferred. She will make a follow-up phone call to verify ET tube position. Electronically signed by: Celestino Patton MD (09/06/2018 7:43 AM) [facility]
== END 2018-09-06 01:30 | disposition short-term general hospital (02) ==
LOC: ER 20:23 → ICU 21:30 → UNDOADMIN 21:30 → ER 09-06 01:30
DX: I47.1 Supraventricular tachycardia (principal); E86.0 Dehydration; R63.4 Abnormal weight loss; E11.9 Type 2 diabetes mellitus without complications; Z68.41 Body mass index [BMI] 40.0-44.9, adult; Z88.5 Allergy status to narcotic agent; Z88.6 Allergy status to analgesic agent
CPT/HCPCS: 31500; 36415; 51702; 71045; 80053; 82010; 82550; 82803; 82947; 83036; 83735; 83880; 84100; 84484; 84681; 85025; 93005; 96361; 96372; 96374; 96375; 99285; J0153; J1630; J1885; J2060; J2250; J2704; J3490; J7030